=== PATIENT | female | born 2000 | race Two or more races ===

== ENCOUNTER 2024-05-31 11:17 | Inpatient (IN) | payer OTHER ==
[~2024-05-31] VITALS: Ht 162.6 cm; Wt 3.2 kg
[2024-05-31 11:48] LABS: HEMATOCRIT 34.3 % (36.0-45.00); HEMOGLOBIN 11.4 g/dL (12.0-15.00); MEAN CELL VOLUME 78.6 fL (80.00-100.00); MEAN CORPUSCULAR HEMOGLOBIN 26.2 pg (27.00-32.0); MEAN CORPUSCULAR HGB CONC 33.3 g/dl (32.0-36.0); PLATELET COUNT 273 K/uL (150-450); RED BLOOD COUNT 4.36 M/uL (4.00-6.00); RED CELL DISTRIBUTION WIDTH 16.4 % (11.5-14.5)
[2024-05-31 11:48] LABS: PH,URINE 6.5 (5.0-8.0); URINE APPEARANCE Clear; URINE BILIRRUBIN Negative (NEGATIVE); URINE BLOOD Negative; URINE COLOR Yellow; URINE GLUCOSE Negative (NEGATIVE); URINE KETONE Negative (NEGATIVE); URINE LEUKOCYTE Trace; URINE NITRATE Negative; URINE PROTEIN Negative (NEGATIVE)
[2024-05-31 11:51] LABS: URINE BACTERIA 923.4 uL (0.0-1933); URINE EPITHELIAL CELLS 59.9 uL (0.0-38.8); URINE RBC 5.4 uL (0.0-20.8); URINE WBC 22.1 uL (0.0-23.2)
[2024-05-31 11:56] LABS: URINE CAST 0.45 uL (0.0-1.40)
[2024-05-31 12:53] LABS: INR 0.98; PARTIAL THROMBOPLASTIN TIME 27.8 SECONDS (22.0-34.0); PROTHROMBIN TIME 10.3 SECONDS (9.0-11.5)
[2024-06-08] MEDS ORDERED: VITATRUE COMBO1 EACH PO (06:10)
[2024-06-08] MEDS ORDERED: CEFAZOLIN SODIUM 1,000 MG VIAL ONE (07:17)
[2024-06-08] MEDS ORDERED: OXYTOCIN 10 UNITS/ML VIAL ONE (07:25)
[2024-06-08] MEDS ORDERED: ERYTHROMYCIN BASE 1 GM TUBE OP ONE (07:25)
[2024-06-08] MEDS ORDERED: PROMETHAZINE HCL 50 MG/ML AMPUL IM PRN (09:15)
[2024-06-08] MEDS ORDERED: RINGERS SOLUTION,LACTATED 1,000 ML IV SCH (09:15)
[2024-06-08] MEDS ORDERED: MEPERIDINE HCL/PF 50 MG/ML VIAL IM PRN (09:15)
[2024-06-08] MEDS ORDERED: PROMETHAZINE HCL 50 MG/ML AMPUL IM ONE (11:50)
[2024-06-08] MEDS ORDERED: CEFAZOLIN SODIUM 1,000 MG VIAL IV SCH (14:00)
[2024-06-09 03:14] LABS: HEMATOCRIT 30.2 % (36.0-45.00); HEMOGLOBIN 10.5 g/dL (12.0-15.00); MEAN CELL VOLUME 77.5 fL (80.00-100.00); MEAN CORPUSCULAR HEMOGLOBIN 26.9 pg (27.00-32.0); MEAN CORPUSCULAR HGB CONC 34.7 g/dl (32.0-36.0); PLATELET COUNT 237 K/uL (150-450)
[2024-06-09] MEDS ORDERED: ACETAMINOPHEN 500 MG GEL..CAP PO PRN (08:15)
[2024-06-09] MEDS ORDERED: OxyCODONE HCL/APAP UD (PERCOCET) PO PRN (08:15)
[2024-06-10] MEDS ORDERED: IBUPROFEN800 MG PO (09:41)
== END 2024-06-10 13:22 | disposition home or self-care (01) | DRG 788 ==
LOC: O/R 06-08 05:38 → LDR 06-08 07:00 → OB/GYN 06-08 11:46
PROVIDERS: ADMIT Specialist; ATTEND Specialist
PROC: 4A1HXCZ Monitoring of Products of Conception, Cardiac Rate, External Approach (ICD-10-PCS; 2024-06-08)
PROC: 10D00Z1 Extraction of Products of Conception, Low, Open Approach (ICD-10-PCS; principal; 2024-06-08 07:00)
DX: O34.211 Maternal care for low transverse scar from previous cesarean delivery (principal); Z3A.39 39 weeks gestation of pregnancy; Z37.0 Single live birth; Z20.822 Contact with and (suspected) exposure to COVID-19